=== PATIENT | female | born 1940 | race Caucasian/White ===

== ENCOUNTER 2017-07-02 06:44 | Observation (INO) | payer MEDICARE, OTHER ==
[~2017-07-02] VITALS: Ht 152.4 cm; Wt 56.1 kg
[~2017-07-02 06:44] MED LIST: ALEVE220 M1 PO; ALEVE220 M4 PO; ASPIRIN EC81 MG PO; BABY ASPIRIN81 MG PO; CALCIUM MAGNES1 EAC2 PO; CALCIUM MAGNESI1 TAB PO; CYCLOBENZAPRINE5 M1 PO; FISH OIL 1,2001 CAP PO; FISH OIL 1,2001 EAC5 PO; GLUCOSAMINE &1 EAC1 PO; GLUCOSAMINE CH1 EAC2 PO; HERB-LAX PO; LISINOPRIL2.5 M1 PO; LISINOPRIL2.5 MG PO; LOVASTATIN40 M1 PO; LOVASTATIN40 M2 PO; MELATONIN1 MG PO; MULTI-VITAMIN1 EAC1 PO; MULTIPLE VITAM1 EAC3 PO; NORCO 5-325 TA1 EACH PO; PREDNISONE10 MG PO; SUPPORT-5001 CAP PO; TRAZODONE HCL100 M1 PO; TYLENOL325 M2 PO; VITAMIN B COMP1 EAC1 PO; VITAMIN C PO; VITAMIN C500 M3 PO; VITAMIN D3400 UNI5 PO; VITAMIN D400 UNI1 PO; [UNRECOGNIZED DRUG - OTHER] PO
[2017-07-02 07:26] LABS: URINE BILIRUBIN NEGATIVE (NEG); URINE BLOOD SMALL (NEG); URINE GLUCOSE (UA) NEGATIVE (NEG); URINE KETONE MODERATE (NEG); URINE LEUKOCYTE ESTERASE NEGATIVE (NEG); URINE NITRITE NEGATIVE (NEG); URINE PROTEIN MODERATE (NEG)
[2017-07-02 07:28] LABS: URINE APPEARANCE CLEAR; URINE COLOR YELLOW
[2017-07-02 07:31] LABS: URINE EPITHELIAL CELLS 0-1 /[HPF] (0-10); URINE RBC 0-2 /[HPF] (0-5); URINE WBC 0-2 /[HPF] (0-5)
[2017-07-02 07:32] LABS: URINE MUCUS 2+
[2017-07-02 07:57] LABS: BASO % 0.2 % (0-2); EOS % 0.4 % (0-7); HCT-HEMATOCRIT 36.3 % (34.0-49.0); HGB-HEMOGLOBIN 12.6 gm/dl (12.0-15.5); IMMATURE GRANULOCYTES ABSOLUTE 0.02 tho/cmm (0-0.03); IMMATURE GRANULOCYTES PERCENT 0.2 % (0-0.3); LYMPH % 6.4 % (20-45); LYMPH ABSOLUTE COUNT 0.6 tho/cmm (0.8-4.5); MCH (MEAN CORPUSCULAR HGB) 31.7 pg (28.0-32.0); MCHC MEAN CORPUSCULAR HGB CONC 34.7 % (32.0-36.0); MCV (MEAN CELL VOLUME) 91.2 fl (82.0-96.0); MEAN PLATELET VOLUME 9.7 cmc (9.4-12.4); MONO % 10.8 % (0-12); NEUTROPHIL ABSOLUTE COUNT 7.3 tho/cmm (1.6-8.0); NEUTROPHIL-AUTOMATED 7.3 tho/cmm (1.6-8.0); PLATELET COUNT 241 tho/cmm (150-450); RED BLOOD COUNT 3.98 mil/cmm (4.00-5.20); RED CELL DISTRIBUTION WIDTH 13.8 % (12.4-16.4); WHITE BLOOD COUNT 8.9 tho/cmm (4.0-10.0)
[2017-07-02 08:13] LABS: ALBUMIN 3.6 g/dl (3.5-5.0); ALKALINE PHOSPHATASE 64 U/L (33-138); ALT/SGPT 27 U/L (12-78); ANION GAP 14 mmol/L (0-20); AST/SGOT 23 U/L (10-40); BILIRUBIN,TOTAL 0.4 mg/dl (0-1.5); BLOOD UREA NITROGEN 33 mg/dl (6-24); C-REACTIVE PROTEIN 4.2 mg/dl (0-0.9); CALCIUM 8.9 mg/dl (8.5-10.5); CARBON DIOXIDE-VENOUS 23 mmol/L (22-32); CHLORIDE 110 mmol/l (96-110); CREATININE 0.83 mg/dl (0.50-1.10); GLUCOSE 160 mg/dL (70-110); LIPASE 145 U/L (73-393); POTASSIUM 3.6 mmol/L (3.7-5.1); SODIUM 143 mmol/L (135-145); eGFR VALUE FOR BLACK 79 mL/Min
[2017-07-03 05:00] LABS: BASO % 0.3 % (0-2); EOS % 1.7 % (0-7); EOSINOPHIL ABSOLUTE COUNT 0.2 tho/cmm (0.0-0.7); HCT-HEMATOCRIT 29.8 % (34.0-49.0); HGB-HEMOGLOBIN 10.2 gm/dl (12.0-15.5); IMMATURE GRANULOCYTES ABSOLUTE 0.03 tho/cmm (0-0.03); IMMATURE GRANULOCYTES PERCENT 0.3 % (0-0.3); LYMPH % 15.1 % (20-45); LYMPH ABSOLUTE COUNT 1.6 tho/cmm (0.8-4.5); MCH (MEAN CORPUSCULAR HGB) 31.4 pg (28.0-32.0); MCHC MEAN CORPUSCULAR HGB CONC 34.2 % (32.0-36.0); MCV (MEAN CELL VOLUME) 91.7 fl (82.0-96.0); MEAN PLATELET VOLUME 9.3 cmc (9.4-12.4); MONO % 11.5 % (0-12); MONOCYTE ABSOLUTE COUNT 1.2 tho/cmm (0.0-1.2); NEUTROPHIL ABSOLUTE COUNT 7.5 tho/cmm (1.6-8.0); NEUTROPHIL-AUTOMATED 7.5 tho/cmm (1.6-8.0); NEUTROPHILS % 71.1 % (40-80); PLATELET COUNT 223 tho/cmm (150-450); RED BLOOD COUNT 3.25 mil/cmm (4.00-5.20); RED CELL DISTRIBUTION WIDTH 14.1 % (12.4-16.4); WHITE BLOOD COUNT 10.5 tho/cmm (4.0-10.0)
[2017-07-03 05:18] LABS: ALB/GLOB RATIO 0.8 (0.8-2.0); ALBUMIN 2.5 g/dl (3.5-5.0); ALKALINE PHOSPHATASE 52 U/L (33-138); ALT/SGPT 23 U/L (12-78); ANION GAP 7 mmol/L (0-20); AST/SGOT 19 U/L (10-40); BILIRUBIN,TOTAL 0.3 mg/dl (0-1.5); BLOOD UREA NITROGEN 13 mg/dl (6-24); CARBON DIOXIDE-VENOUS 28 mmol/L (22-32); CHLORIDE 111 mmol/l (96-110); CREATININE 0.73 mg/dl (0.50-1.10); GLUCOSE 92 mg/dL (70-110); POTASSIUM 3.3 mmol/L (3.7-5.1); SODIUM 143 mmol/L (135-145); eGFR VALUE FOR BLACK >90 mL/Min
[2017-07-03] MEDS ORDERED: PEPTO PO (16:37)
== END 2017-07-03 17:00 ==
LOC: EDMED 06:44 → EMR2 12:16 → CAR1 12:16
PROVIDERS: Emergency Medicine; Nurse Practitioner Acute Care; ADMIT Family Medicine
DX: A04.5 Campylobacter enteritis (principal); E86.0 Dehydration; I10 Essential (primary) hypertension; K80.20 Calculus of gallbladder without cholecystitis without obstruction; E78.5 Hyperlipidemia, unspecified; M19.90 Unspecified osteoarthritis, unspecified site; G47.00 Insomnia, unspecified; I45.10 Unspecified right bundle-branch block; G51.0 Bell's palsy; Z87.891 Personal history of nicotine dependence; Z79.899 Other long term (current) drug therapy; Z87.11 Personal history of peptic ulcer disease; Z90.49 Acquired absence of other specified parts of digestive tract; Z98.1 Arthrodesis status; Z98.890 Other specified postprocedural states
CPT/HCPCS: J2270; J2405; J7030; Q9967